=== PATIENT | male | born 1985 | race African-American/Black ===

== ENCOUNTER 2022-03-27 19:29 | Emergency (ER) | payer BC ==
[~2022-03-27] VITALS: Ht 175.3 cm; Wt 62.6 kg
--- NOTE | 2022-03-27 19:39 | NUR ---
CALLED TO TRIAGE, NO RESPONSE.
[2022-03-27 20:50] VITALS: BP 135/84
[2022-03-27] MEDS ORDERED: IBUPROFEN 600 MG TABLET PO ONE (21:00)
[2022-03-27] MEDS ORDERED: IBUPROFEN 600 MG TABLET ONE (21:01)
[2022-03-27] MEDS ORDERED: IBUPROFEN 400 MG TABLET PO ONE (22:00)
[2022-03-27] MEDS ORDERED: IBUP-1957 PO (22:02)
--- NOTE | 2022-03-27 22:14 | NUR ---
Patient discharged to home in stable condition. Written and verbal after care instructions given. Patient verbalizes understanding of instruction.
--- NOTE | 2022-03-27 22:14 | NUR ---
PATIENT BEING TAUGHT HOW TO USE CRUTCHES BY TOWN ADMINISTRATOR.
--- NOTE | 2022-03-27 22:14 | NUR ---
PER DR PIERRE NOT TO GIVE THE MOTRIN 800MG PO SINCE PT RECEIVED MOTRIN 600MG PO EARLIER.
== END 2022-03-27 22:15 | disposition home or self-care (01) ==
LOC: ER 19:32
DX: S93.492A Sprain of other ligament of left ankle, initial encounter (principal); F17.290 Nicotine dependence, other tobacco product, uncomplicated; Z79.899 Other long term (current) drug therapy; X58.XXXA Exposure to other specified factors, initial encounter; Y93.89 Activity, other specified; Y92.89 Other specified places as the place of occurrence of the external cause; Y99.0 Civilian activity done for income or pay
CPT/HCPCS: 73630-TC